=== PATIENT | male | born 1940 | race Caucasian/White ===

== ENCOUNTER → 2017-07-13 | Day surgery (SDC) | payer OTHER ==
[~2017-07-13] MED LIST: LIDOCAINE 2% PF Vial for OR 5 ML VIAL. ONE; LOSA1TAB25 PO; OMEP40CA5 PO; PROPOFOL 40 ML IV ONE; SIMV40TA3 PO
== END ==
LOC: SURG 09:49
PROVIDERS: ATTEND Internal Medicine Gastroenterology
DX: K29.50 Unspecified chronic gastritis without bleeding (principal); K21.0 Gastro-esophageal reflux disease with esophagitis; E78.00 Pure hypercholesterolemia, unspecified; M10.9 Gout, unspecified; Z98.890 Other specified postprocedural states; Z91.018 Allergy to other foods
CPT/HCPCS: 43239; 88305; 88342; J2704; J2001